=== PATIENT | female | born 1935 | race Asian ===

== ENCOUNTER 2022-08-27 15:21 | Inpatient (IN) | payer MEDICARE, OTHER ==
[~2022-08-27] VITALS: Ht 144.8 cm; Wt 52.0 kg
[2022-08-27] MEDS ORDERED: VANCOMYCIN HCL 1 GM/D5% WATER 200 ML IV ONE (16:30)
[2022-08-27] MEDS ORDERED: PIPERACILLIN SODIUM/TAZOBACTAM 4.5 GM in DEXTROSE 5%-WATER 100 ML IV ONE (16:30)
[2022-08-27 17:09] LABS: COVID AG,FIA SOURCE NASAL SWAB
[2022-08-27 17:20] LABS: BASOPHILS % (AUTO) 0.2 % (0.0-2.0); EOSINOPHILS % (AUTO) 0 % (1.0-6.0); HEMATOCRIT 30.5 % (36-46); HEMOGLOBIN 10.1 g/dL (12.0-16.0); LYMPHOCYTES # (AUTO) 0.6 K/uL (1.0-4.8); LYMPHOCYTES % (AUTO) 3.3 % (22.0-44.0); MEAN CORPUSCULAR HGB CONC 33.1 G/dL (31.0-37.0); MEAN CORPUSCULAR VOLUME 91 fL (80-100); MONOCYTES # (AUTO) 0.4 K/uL (0.1-1.0); MONOCYTES % (AUTO) 2.3 % (2.0-9.0); NEUTROPHILS # (AUTO) 15.9 K/uL (1.8-7.7); PLATELET COUNT (AUTO) 282 K/uL (150-450); RED BLOOD CELL COUNT(AUTO) 3.37 MIL/uL (4.00-5.20); RED CELL DISTRIBUTION WIDTH 20.4 % (11.5-14.5)
[2022-08-27 17:21] LABS: NEUTROPHILS % (AUTO) 94.2 % (40.0-70.0)
[2022-08-27 17:31] LABS: ALBUMIN 2.5 g/dL (3.4-5.0); BILIRUBIN,TOTAL 1.1 mg/dL (0.1-1.0); CREATININE 1.01 mg/dL (0.60-1.30); TOTAL PROTEIN, SERUM 7.3 g/dL (6.4-8.2)
[2022-08-27 17:33] LABS: INR 1.1 (0.9-1.1); PROTHROMBIN TIME 12.1 SEC (9.4-11.6)
[2022-08-27 17:35] LABS: POTASSIUM 2.8 mmol/L (3.5-5.1)
[2022-08-27 17:46] LABS: INFLUENZA TYPE A NEGATIVE FOR TYPE A (NEGATIVE); INFLUENZA TYPE B NEGATIVE FOR TYPE B (NEGATIVE)
[2022-08-27] MEDS: POTASSIUM CHL 10 MEQ/WATER 50 ML IV SCH ×4 (18:30→23:19)
[2022-08-27 18:50] LABS: APPEARANCE,URINE HAZY (CLEAR); BILIRUBIN,URINE NEGATIVE (NEGATIVE); GLUCOSE, URINE (UA) NEGATIVE (NEGATIVE); KETONES,URINE NEGATIVE (NEGATIVE); LEUKOCYTE ESTERASE ,URINE LARGE (NEGATIVE); NITRATE,URINE NEGATIVE (NEGATIVE); OCCULT BLOOD,URINE MODERATE (NEGATIVE); PROTEIN,URINE 300-600,SEE CONFIRM mg/dL (NEGATIVE); SPECIFIC GRAVITIY, URINE 1.017 (1.003-1.030)
[2022-08-27] MEDS ORDERED: ONDANSETRON HCL 4 MG/2 ML VIAL IVP PRN (19:00)
[2022-08-27] MEDS ORDERED: MAGNESIUM SULFATE 2 GM/WATER 50 ML IV PRN (19:00)
[2022-08-27] MEDS ORDERED: MAGNESIUM OXIDE 400 MG TABLET PO PRN (19:00)
[2022-08-27] MEDS ORDERED: RINGERS SOLUTION,LACTATED 1,000 ML IV SCH (19:00)
[2022-08-27] MEDS ORDERED: ACETAMINOPHEN 325 MG TABLET PO PRN (19:00)
[2022-08-27] MEDS ORDERED: POTASSIUM CHL 10 MEQ/WATER 50 ML IV PRN (19:00)
[2022-08-27] MEDS ORDERED: MAGNESIUM SULFATE 4 GM/WATER 100 ML IV PRN (19:00)
[2022-08-27] MEDS ORDERED: POTASSIUM CHLORIDE 20 MEQ ER TABLET PO PRN (19:00)
[2022-08-27 19:15] LABS: BACTERIA,URINE Many /HPF (None Seen)
[2022-08-27 19:16] LABS: CALCIUM OXALATE CRYSTALS,UR Few /LPF (None Seen); WBC,URINE 51-100 /HPF (0-5)
[2022-08-27 19:17] LABS: RENAL EPITHELIAL CELLS,URINE Few /LPF (None Seen)
[2022-08-27 19:18] LABS: SULFOSALICYLIC ACID,URINE 4+ (Negative)
[2022-08-27 21:46] VITALS: BP 141/62
[2022-08-27] MEDS ORDERED: MORPHINE SULFATE 2 MG/ML SYRINGE IVP ONE (23:15)
[2022-08-27] MEDS: HEPARIN SODIUM,PORCINE 5,000 UNITS/ML VIAL SQ SCH (23:18)
[2022-08-27] MEDS ORDERED: SODIUM CHLORIDE 0.9% 500 ML IV ONE (23:27)
[2022-08-27] MEDS: PIPERACILLIN SODIUM/TAZOBACTAM 2.25 GM in DEXTROSE 5%-WATER 50 ML IV SCH (23:39)
[2022-08-27 23:55] VITALS: BP 134/62
[2022-08-28 04:48] VITALS: BP 141/55
[2022-08-28] MEDS: PIPERACILLIN SODIUM/TAZOBACTAM 2.25 GM in DEXTROSE 5%-WATER 50 ML IV SCH (05:06)
[2022-08-28 06:34] LABS: CALCIUM, TOTAL 8.5 mg/dL (8.8-10.5); CREATININE 0.91 mg/dL (0.60-1.30); MAGNESIUM 2.2 mg/dL (1.80-2.40); POTASSIUM 3.7 mmol/L (3.5-5.1)
[2022-08-28 07:56] VITALS: BP 144/77
[2022-08-28] MEDS ORDERED: VANCOMYCIN HCL 500 MG in DEXTROSE 5%-WATER 100 ML IV SCH (08:00)
[2022-08-28] MEDS: HEPARIN SODIUM,PORCINE 5,000 UNITS/ML VIAL SQ SCH ×2 (08:38→16:30)
[2022-08-28 11:19] VITALS: BP 151/61
[2022-08-28 15:45] VITALS: BP 170/64
[2022-08-28 16:00] VITALS: BP 156/70
[2022-08-28] MEDS: LEVOFLOXACIN 750 MG TABLET PO SCH (16:30)
[2022-08-28] MEDS: OxyCODONE HCL/ACETAMINOPHEN 5-325 MG TABLET PO PRN (18:36)
[2022-08-28 19:45] VITALS: BP 132/57
[2022-08-28] MEDS ORDERED: ALBUTEROL SULFATE 2.5 MG/0.5 ML NEB SOLUTION NEB PRN (22:00)
[2022-08-29 00:01] VITALS: BP 138/55
[2022-08-29] MEDS ORDERED: FUROSEMIDE 20 MG/2 ML VIAL IVP ONE (03:00)
[2022-08-29 04:02] VITALS: BP 135/57
[2022-08-29 07:41] VITALS: BP 137/72
[2022-08-29 07:45] LABS: CALCIUM, TOTAL 8.2 mg/dL (8.8-10.5); CREATININE 1.19 mg/dL (0.60-1.30); POTASSIUM 3.4 mmol/L (3.5-5.1)
[2022-08-29] MEDS: HEPARIN SODIUM,PORCINE 5,000 UNITS/ML VIAL SQ SCH ×4 (09:00→23:30)
[2022-08-29 11:18] VITALS: BP 144/55
[2022-08-29] MEDS: LEVOFLOXACIN 750 MG TABLET PO SCH (11:30)
[2022-08-29] MEDS ORDERED: POTASSIUM CHLORIDE 10% 40 MEQ/30 ML LIQUID UDCUP PO ONE (15:30)
[2022-08-29] MEDS ORDERED: SODIUM CHLORIDE 0.9% 500 ML IV ONE (17:15)
[2022-08-29] MEDS: POTASSIUM CHL 10 MEQ/WATER 50 ML IV SCH ×2 (17:32→18:57)
[2022-08-29] MEDS: OxyCODONE HCL/ACETAMINOPHEN 5-325 MG TABLET PO PRN (19:00)
[2022-08-29 20:26] LABS: GLUCOMETER DEV NAME(LOC) 5N.1C; GLUCOSE,POINT OF CARE 173 MG/DL (70-110)
[2022-08-29 23:03] VITALS: BP 103/50
[2022-08-30 04:17] VITALS: BP 117/54
[2022-08-30 05:46] LABS: CALCIUM, TOTAL 7.9 mg/dL (8.8-10.5); CREATININE 1.05 mg/dL (0.60-1.30); POTASSIUM 3.5 mmol/L (3.5-5.1)
[2022-08-30 07:17] VITALS: BP 112/56
[2022-08-30] MEDS: HEPARIN SODIUM,PORCINE 5,000 UNITS/ML VIAL SQ SCH ×2 (08:38→16:29)
[2022-08-30] MEDS: LEVOFLOXACIN 750 MG TABLET PO SCH (09:43)
[2022-08-30] MEDS ORDERED: *CLINICAL-LEVOFLOXACIN IVPB DOSING CLINICAL ONE (12:00)
[2022-08-30] MEDS ORDERED: DEXTROSE 5%-WATER 500 ML IV ONE (12:00)
[2022-08-30] MEDS: CLINDAMYCIN HCL 300 MG CAPSULE PO SCH ×3 (16:00→23:29)
[2022-08-30 16:30] VITALS: BP 111/41
[2022-08-30 20:42] VITALS: BP 116/47
[2022-08-30] MEDS: ETHYL ALCOHOL 62% ANTISEPTIC NASAL SANITIZER 0.6 ML AMPUL NASAL SCH (21:00)
[2022-08-31] MEDS: CLINDAMYCIN HCL 300 MG CAPSULE PO SCH
[2022-08-31] MEDS: HEPARIN SODIUM,PORCINE 5,000 UNITS/ML VIAL SQ SCH ×2 (00:41→08:05)
[2022-08-31 03:58] VITALS: BP 117/42
[2022-08-31 07:57] VITALS: BP 115/53
[2022-08-31] MEDS: ETHYL ALCOHOL 62% ANTISEPTIC NASAL SANITIZER 0.6 ML AMPUL NASAL SCH ×2 (08:07→20:25)
[2022-08-31] MEDS ORDERED: SODIUM CHLORIDE 0.9% 500 ML IV ONE (08:13)
[2022-08-31 08:30] VITALS: BP 93/49
[2022-08-31 08:35] VITALS: BP 117/55
[2022-08-31] MEDS ORDERED: LEVOFLOXACIN 750 MG/D5% WATER 150 ML IV SCH (09:00)
[2022-08-31 11:08] LABS: EOSINOPHILS % (AUTO) 0 % (1.0-6.0); HEMATOCRIT 22.2 % (36-46); HEMOGLOBIN 7.1 g/dL (12.0-16.0); LYMPHOCYTES # (AUTO) 0.4 K/uL (1.0-4.8); LYMPHOCYTES % (AUTO) 3.1 % (22.0-44.0); MEAN CORPUSCULAR HEMOGLOBIN 29.6 pg (26.0-34.0); MEAN CORPUSCULAR HGB CONC 31.9 G/dL (31.0-37.0); MEAN CORPUSCULAR VOLUME 93 fL (80-100); MONOCYTES # (AUTO) 0.3 K/uL (0.1-1.0); MONOCYTES % (AUTO) 2.3 % (2.0-9.0); NEUTROPHILS # (AUTO) 12.9 K/uL (1.8-7.7); PLATELET COUNT (AUTO) 197 K/uL (150-450); RED CELL DISTRIBUTION WIDTH 21.1 % (11.5-14.5)
[2022-08-31 11:14] LABS: NEUTROPHILS % (AUTO) 94.6 % (40.0-70.0)
[2022-08-31 11:44] LABS: CALCIUM, TOTAL 7.6 mg/dL (8.8-10.5); CREATININE 1.22 mg/dL (0.60-1.30)
[2022-08-31] MEDS ORDERED: DEXTROSE 5%-WATER 1,000 ML IV ONE (14:15)
[2022-08-31 15:11] VITALS: BP 92/63
[2022-08-31] MEDS: PIPERACILLIN SODIUM/TAZOBACTAM 2.25 GM in DEXTROSE 5%-WATER 50 ML IV SCH ×2 (16:38→20:24)
[2022-08-31 19:58] VITALS: BP 100/47
[2022-09-01] MEDS: PIPERACILLIN SODIUM/TAZOBACTAM 2.25 GM in DEXTROSE 5%-WATER 50 ML IV SCH ×2 (03:11→07:51)
[2022-09-01 03:42] VITALS: BP 80/41
[2022-09-01 07:24] VITALS: BP 93/42
[2022-09-01 07:24] LABS: CALCIUM, TOTAL 7.6 mg/dL (8.8-10.5); CREATININE 1.76 mg/dL (0.60-1.30); POTASSIUM 3.4 mmol/L (3.5-5.1)
[2022-09-01] MEDS: ETHYL ALCOHOL 62% ANTISEPTIC NASAL SANITIZER 0.6 ML AMPUL NASAL SCH (07:44)
[2022-09-01] MEDS ORDERED: SODIUM CHLORIDE 0.9% 500 ML IV ONE (07:56)
[2022-09-01 11:01] LABS: BASOPHILS % (AUTO) 0.2 % (0.0-2.0); EOSINOPHILS % (AUTO) 0.1 % (1.0-6.0); HEMATOCRIT 24.7 % (36-46); HEMOGLOBIN 8.2 g/dL (12.0-16.0); LYMPHOCYTES % (AUTO) 4.7 % (22.0-44.0); MEAN CORPUSCULAR HEMOGLOBIN 30.3 pg (26.0-34.0); MEAN CORPUSCULAR HGB CONC 33.2 G/dL (31.0-37.0); MEAN CORPUSCULAR VOLUME 91 fL (80-100); MONOCYTES # (AUTO) 0.5 K/uL (0.1-1.0); MONOCYTES % (AUTO) 2.3 % (2.0-9.0); NEUTROPHILS # (AUTO) 20.6 K/uL (1.8-7.7); NEUTROPHILS % (AUTO) 92.7 % (40.0-70.0); PLATELET COUNT (AUTO) 156 K/uL (150-450); RED BLOOD CELL COUNT(AUTO) 2.71 MIL/uL (4.00-5.20); RED CELL DISTRIBUTION WIDTH 21.1 % (11.5-14.5)
[2022-09-01] MEDS ORDERED: PIPERACILLIN SODIUM/TAZOBACTAM 2.25 GM in DEXTROSE 5%-WATER 50 ML IV SCH (17:00)
[2022-09-02] MEDS ORDERED: LEVOFLOXACIN 500 MG/D5% WATER 100 ML IV SCH (10:00)
== END 2022-09-01 15:24 | DRG 871 ==
LOC: EMS 15:25 → 5S 18:34 → 6S 08-29 14:50
PROVIDERS: ADMIT Internal Medicine; ATTEND Internal Medicine
PROC: 5A09357 Assistance with Respiratory Ventilation, Less than 24 Consecutive Hours, Continuous Positive Airway Pressure (ICD-10-PCS; principal; 2022-08-29)
PROC: 5A09357 Assistance with Respiratory Ventilation, Less than 24 Consecutive Hours, Continuous Positive Airway Pressure (ICD-10-PCS; 2022-08-30)
PROC: 5A09357 Assistance with Respiratory Ventilation, Less than 24 Consecutive Hours, Continuous Positive Airway Pressure (ICD-10-PCS; 2022-08-31)
PROC: 5A09357 Assistance with Respiratory Ventilation, Less than 24 Consecutive Hours, Continuous Positive Airway Pressure (ICD-10-PCS; 2022-09-01)
DX: A41.9 Sepsis, unspecified organism (principal); E43 Unspecified severe protein-calorie malnutrition; J69.0 Pneumonitis due to inhalation of food and vomit; J96.01 Acute respiratory failure with hypoxia; G93.41 Metabolic encephalopathy; L89.153 Pressure ulcer of sacral region, stage 3; E87.0 Hyperosmolality and hypernatremia; Z66 Do not resuscitate; I50.9 Heart failure, unspecified; E87.6 Hypokalemia; D64.9 Anemia, unspecified; Z68.24 Body mass index [BMI] 24.0-24.9, adult; I46.9 Cardiac arrest, cause unspecified; I11.0 Hypertensive heart disease with heart failure; K21.9 Gastro-esophageal reflux disease without esophagitis; E03.9 Hypothyroidism, unspecified; I25.10 Atherosclerotic heart disease of native coronary artery without angina pectoris; I48.91 Unspecified atrial fibrillation; I73.9 Peripheral vascular disease, unspecified; Z20.822 Contact with and (suspected) exposure to COVID-19; Z51.5 Encounter for palliative care; Z86.14 Personal history of Methicillin resistant Staphylococcus aureus infection; Z87.01 Personal history of pneumonia (recurrent); Z95.2 Presence of prosthetic heart valve
CPT/HCPCS: 71045; 74230; 80048; 80053; 81001; 81002; 82040; 82962; 83605; 83735; 83880; 84132; 84484; 85025; 85610; 85730; 87040; 87081; 87086; 87186; 87804; 92526; 92610; 92611; 93005; 94660; 99285; J1644; J1940; J1956; J2270; J2543; J3370; J3480; J7040; J7060; Q9967; 36415-L1; 36415-TC